=== PATIENT | female | born 1985 | race Two or more races ===

== ENCOUNTER 2023-07-05 10:24 | Emergency (ER) | payer BC, SELFPAY ==
[2023-07-05 10:50] VITALS: BP 161/97
--- NOTE | 2023-07-05 11:18 | ED.GENMED ---
History of Present Illness
General
Chief Complaint: Weakness
Time Seen by Provider: 07/05/23 11:13
Travel History
Have you had any contact with someone who has COVID-19?: No
Do you have any symptoms of coronavirus? Fever > 100 degrees, chills, cough, shortness of breath, sore throat, loss of taste or smell, muscle aches, or headache?: No
History of Present Illness
History of Present Illness:
37-year-old female with history of hypertension presents to the emergency department for evaluation of dry cough and chest tightness that began 5 days ago. She did note brief episode of nasal congestion at onset of symptoms that has since resolved
no fevers or chills. No ill contacts at home.
Past History
Past History
ED Past Medical History: None
ED Past Surgical History: None
Social History
Tobacco: Non-smoker
Alcohol: None
Drug: None
Personal:
Living: with family
Review of Systems
Review of Systems
Allergies reviewed?: Yes
All Other Systems: ROS reviewed and negative except as documented in HPI and ROS
Phy Exam
Physical Exam
Physical Exam:
GEN: Well appearing, NAD, WDWN
HEENT: Oral mucosa moist, no scleral icterus, TMs clear bilaterally with no erythema
Cardiac: Regular rate and rhythm, no murmurs
Lung: No respiratory distress, no tachypnea, lungs clear to auscultation bilaterally
MSK: No gross deformity or injuries
Skin: Good color, no pallor or jaundice, no rashes
Neuro: AO x3, moves all extremities freely
Psych: Calm, cooperative
Course
Orders/Labs/Results
Orders:
Orders
07/05/23 10:56
Electrocardiogram (*1) Urgent
Reason for Study: Chest Pain
EKG- Treatment ONCE
07/05/23 11:18
0.9% Sodium Chloride 1000 ml [Nss] 1,000 ml IV BOLUS
CR Chest - 2 Views Urgent
Comment:
Reason For Exam: cough/SOB
07/05/23 11:22
Complete Blood Count/With Diff Urgent
Comprehensive Metabolic Panel Urgent
Abnormal Lab Results
07/05/23
11:22
WBC 4.6 L 10^3/uL
(4.8-10.8)
MPV 11.1 H fL
(7.4-10.4)
Monocytes % 10.0 H %
(1.7-9.3)
Glucose 127 H mg/dl
(70-99)
07/05/23 11:22
07/05/23 11:22
Vital Signs
Initial and Last Documented VS:
Initial Vital Signs
Temp Pulse Resp BP Pulse Ox
98.4 F 103 20 161/97 98
07/05/23 10:50 07/05/23 10:50 07/05/23 10:50 07/05/23 10:50 07/05/23 10:50
Last Documented Vital Signs
Temp Pulse Resp BP Pulse Ox
98.4 F 83 20 125/83 95
07/05/23 10:50 07/05/23 11:44 07/05/23 10:50 07/05/23 13:00 07/05/23 13:15
MDM/Problems Addressed
MDM/Problems Addressed:
Labs are reassuring, chest x-ray shows no overt evidence for infiltrate. Likely self-limited viral syndrome particular given mild leukopenia. Discussed supportive care and return parameters
*Critical Care Note
Total Time (30-74mins, 75-104mins- exclusive of procedures): Not Applicable
ED Attending Note
-
Portions of this chart may have been created with voice recognition software.� Occasional wrong word or��sound alike� substitutions may have occurred due to the inherent limitations of voice recognition software.
Discharge Plan
Departure
Patient Disposition: Home (Routine Discharge)
Date of Disposition: 07/05/23
Time of Disposition: 12:51
Patient with high blood pressure during this ER visit?: No
Discharge Problem:
Bronchitis
Instructions: Bronchitis, Adult ED
Prescriptions:
New
benzonatate 200 mg capsule
200 mg PO TID PRN (Reason: Cough) Qty: 20 0RF
No Action
dicyclomine 20 MG tablet
20 mg PO QIDPRN PRN (Reason: cramping) Qty: 20 0RF
Referrals:
Tony Kilgore MD [Family Provider] -
Interventions
Interventions:
*Risk Screen - Suicide Last Done: 07/05/23 10:52
*General Assessment Last Done: 07/05/23 10:52
*Neglect/Abuse Screening Last Done: 07/05/23 10:52
ED- Fall Risk Assessment Last Done: 07/05/23 11:22
*ED COVID-19 Vaccine History Last Done: 07/05/23 11:22
*Nursing Disposition Last Done: 07/05/23 14:11
ED- Cardiac Assessment Last Done: 07/05/23 11:22
ED- Neurological Assessment Last Done: 07/05/23 11:22
ED- Pulmonary Assessment Last Done: 07/05/23 11:22
Discharge Date and Time
Discharge Date/Time: 07/05/23 14:13
Print Language: HEBREW
[2023-07-05 11:22] VITALS: BMI 30.4
[2023-07-05 11:23] VITALS: BP 152/92
[2023-07-05 11:38] LABS: % Basophils 0.4 % (0-2); % Eosinophils 0.9 % (0-6); % Immature Granulocytes 0.2 % (0-0.5); % Lymphocytes 29.3 % (20.5-51.1); % Neutrophils 59.2 % (42.2-75.2); Absolute Lymphocytes 1.3 10^3/uL (1.2-3.4); Absolute Monocytes 0.5 10^3/uL (0.1-0.6); Absolute Neutrophils 2.7 10^3/uL (1.4-6.5); Hematocrit 41.6 % (37.0-47.0); Hemoglobin 14.4 g/dL (12.0-16.0); Mean Corp Hgb Conc. 34.6 g/dL (33.0-37.0); Mean Corpuscular Volume 83.9 fL (81.0-99.0); Mean Platelet Volume 11.1 fL (7.4-10.4); Nucleated Red Blood Cells % 0 %; Platelet Count 202 10^3/uL (130-400); Red Blood Cell Count 4.96 10^6/uL (4.20-5.40); Red Cell Dist. Width 13.2 % (11.5-14.5); White Blood Cell Count 4.6 10^3/uL (4.8-10.8)
[2023-07-05 12:07] LABS: ALT (SGPT) 30 U/L (0-35); AST (SGOT) 29 U/L (14-36); Albumin 4.1 g/dl (3.5-5.0); Alkaline Phosphatase 89 U/L (38-126); Blood Urea Nitrogen 13 mg/dl (7-17); Carbon Dioxide 25 mmol/L (22-30); Chloride 105 mmol/L (98-107); Estimated Creatinine Clearance > 125 ml/min; Glucose 127 mg/dl (70-99); Potassium 3.8 mmol/L (3.5-5.1); Sodium 138 mmol/L (135-145); Total Bilirubin 1.2 mg/dl (0.2-1.3); eGFR > 60.00
[2023-07-05] MEDS: NSS 1000 IV (12:47)
[2023-07-05 12:48] VITALS: BP 132/94
[2023-07-05 13:00] VITALS: BP 125/83
== END 2023-07-05 14:13 | disposition home or self-care (01) ==
LOC: EMR 10:24
PROVIDERS: Physician Assistant; EMERGENCY PHYSICIAN Emergency Medicine; FAMILY PHYSICIAN Internal Medicine
DX: J20.9 Acute bronchitis, unspecified (principal); I10 Essential (primary) hypertension; Z88.8 Allergy status to other drugs, medicaments and biological substances
CPT/HCPCS: 99284; 96360; 71046; 80053; 85025; 93005